=== PATIENT | female | born 1995 | race Hispanic/Latino ===

== ENCOUNTER 2019-08-09 18:59 | Emergency (ER) | payer MEDICAID ==
[2019-08-09 19:18] VITALS: BP 119/69
--- NOTE | 2019-08-09 19:28 | Emergency Department Report ---
ED Abdominal Pain HPI - General Chief Complaint: Abdominal Pain Stated Complaint: STOMACH PAIN Time Seen by Provider: 08/09/19 19:22 Source: patient Mode of arrival: Ambulatory Limitations: No Limitations - History of Present Illness Initial Comments: This is a 24-year-old female nontoxic, well nourished in appearance, no acute signs of distress presents to the ED with c/o of chronic intermittent epigastric pain x2 years. Stated has burning sensation after eating but currently denies any pain. Denies any . Patient denies any pelvic or abdominal pain. Patient denies any trauma. Denies any bladder or bowel instability. Patient denies any urinary symptoms. Denies any fever, chills, nausea, vomiting, headache, stiff neck, chest pain or shortness of breath. Patient denies any numbness or tingling. Denies any allergies. MD Complaint: abdominal pain -: year(s) Location: epigastric Migration to: no migration Severity scale (0 -10): 0 Consistency: intermittent, now resolved Improves With: nothing Worsens With: nothing Associated Symptoms: denies other symptoms. denies: nausea, vomiting, diarrhea, fever, chills, constipation, dysuria, hematemesis, hematochezia, melena, hematuria, anorexia, syncope ED Review of Systems ROS: Stated complaint: STOMACH PAIN Other details as noted in HPI Constitutional: denies: chills, fever Eyes: denies: eye pain, eye discharge, vision change ENT: denies: ear pain, throat pain Respiratory: denies: cough, shortness of breath, wheezing Cardiovascular: denies: chest pain, palpitations Endocrine: no symptoms reported Gastrointestinal: denies: abdominal pain, nausea, diarrhea Genitourinary: denies: urgency, dysuria, discharge Musculoskeletal: denies: back pain, joint swelling, arthralgia Skin: denies: rash, lesions Neurological: denies: headache, weakness, paresthesias Psychiatric: denies: anxiety, depression Hematological/Lymphatic: denies: easy bleeding, easy bruising ED Physical Exam - General Limitations: No Limitations General appearance: alert, in no apparent distress - Head Head exam: Present: atraumatic, normocephalic - Eye Eye exam: Present: normal appearance - Neck Neck exam: Present: normal inspection, full ROM. Absent: tenderness, meningismus, lymphadenopathy - Respiratory Respiratory exam: Present: normal lung sounds bilaterally. Absent: respiratory distress, wheezes, rales, rhonchi, stridor, chest wall tenderness, accessory muscle use, decreased breath sounds, prolonged expiratory - Cardiovascular Cardiovascular Exam: Present: regular rate, normal rhythm, normal heart sounds. Absent: irregular rhythm, systolic murmur, diastolic murmur, rubs, gallop - GI/Abdominal GI/Abdominal exam: Present: soft, normal bowel sounds. Absent: distended, tenderness, guarding, rebound, rigid, diminished bowel sounds, hyperactive bowel sounds, hypoactive bowel sounds, organomegaly, mass, bruit, pulsatile mass, hernia - Extremities Exam Extremities exam: Present: normal inspection, full ROM - Back Exam Back exam: Present: normal inspection, full ROM. Absent: tenderness, CVA tenderness (R), CVA tenderness (L), muscle spasm, paraspinal tenderness, vertebral tenderness, rash noted - Neurological Exam Neurological exam: Present: alert, oriented X3, normal gait - Psychiatric Psychiatric exam: Present: normal affect, normal mood - Skin Skin exam: Present: warm, dry, intact, normal color. Absent: rash ED Course Vital Signs 08/09/19 19:17 Temperature 98.8 F Pulse Rate 100 H Respiratory 16 Rate Blood Pressure 119/69 O2 Sat by Pulse 100 Oximetry - Reevaluation(s) Reevaluation #1: 08/09/19 19:27 Patient is speaking in full sentences with no signs of distress noted. ED Medical Decision Making - Medical Decision Making This is a 24-year-old female that presents with GERD symptoms. Patient is stable was examined by me. There is abdominal tenderness. Normal physical exam. Patient was referred to Follow-up with a primary care doctor in 3-5 days or if symptoms worsen and continue return to emergency room as soon as possible. At time of discharge, the patient does not seem toxic or ill in appearance. No acute signs of distress noted. Patient agrees to discharge treatment plan of care. No further questions noted by the patient. Critical care attestation.: If time is entered above; I have spent that time in minutes in the direct care of this critically ill patient, excluding procedure time. ED Disposition Clinical Impression: GERD (gastroesophageal reflux disease) Qualifiers: Esophagitis presence: esophagitis presence not specified Qualified Code(s): K21 .9 - Gastro-esophageal reflux disease without esophagitis Disposition: MED SCREENING EXAM-LEFT Is pt being admited?: No Does the pt Need Aspirin: No Condition: Stable Instructions: Gastroesophageal Reflux Disease (ED) Additional Instructions: Follow-up with a primary care doctor in 3-5 days or if symptoms worsen and continue return to emergency room as soon as possible. Referrals: PRIMARY CARE, [Referring] - 3-5 Days TESSIE FOX MD [Staff Physician] - 3-5 Days [facility] [Provider Group] - 3-5 Days
== END 2019-08-09 20:00 | disposition left against medical advice (07) ==
LOC: ED 18:59
DX: K21.9 Gastro-esophageal reflux disease without esophagitis (principal)
CPT/HCPCS: 99281

== ENCOUNTER 2020-06-03 14:21 | Emergency (ER) | payer MEDICAID ==
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
[2020-06-03 15:13] VITALS: BP 140/65
== END 2020-06-03 16:48 | disposition home or self-care (01) ==
LOC: ED 14:21
DX: S00.83XA Contusion of other part of head, initial encounter (principal); S00.93XA Contusion of unspecified part of head, initial encounter; F31.9 Bipolar disorder, unspecified; Z91.013 Allergy to seafood; X58.XXXA Exposure to other specified factors, initial encounter; Y93.89 Activity, other specified; Y92.099 Unspecified place in other non-institutional residence as the place of occurrence of the external cause; Y99.8 Other external cause status
CPT/HCPCS: 99281

== ENCOUNTER 2020-07-12 20:18 | Emergency (ER) | payer MEDICAID ==
[2020-07-12] MEDS ORDERED: ACETAMINOPHEN 500 MG TAB PO ONE (20:52)
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
[2020-07-12 22:11] LABS: Granular Casts,Urine 3 /LPF; Mucus,Urine 1+ /HPF
[2020-07-12 22:13] LABS: Bilirubin,Urine NEG (Negative); Blood,Urine NEG (Negative); Color,Urine Yellow (Yellow)
[2020-07-12 22:27] LABS: HCG Qualitative,Urine Negative (Negative)
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
[2020-07-13] MEDS ORDERED: ONDANSETRON 4 MG ODT TAB PO ONE (00:10)
[2020-07-13] MEDS ORDERED: LIDOCAINE-MPF (1%) 10 MG/1 ML VIAL 5 ML INFILTRATI ONE (00:10)
[2020-07-13] MEDS ORDERED: AZITHROMYCIN 250 MG TAB PO ONE (00:10)
[2020-07-13 01:29] VITALS: BP 119/66
== END 2020-07-13 01:16 | disposition home or self-care (01) ==
LOC: ED 20:18
DX: T74.21XA Adult sexual abuse, confirmed, initial encounter (principal); A60.00 Herpesviral infection of urogenital system, unspecified; K62.89 Other specified diseases of anus and rectum; F20.9 Schizophrenia, unspecified; F31.9 Bipolar disorder, unspecified; F17.200 Nicotine dependence, unspecified, uncomplicated; Z79.899 Other long term (current) drug therapy; Z91.013 Allergy to seafood; Y07.9 Unspecified perpetrator of maltreatment and neglect
CPT/HCPCS: 81001; 81025; 87086; 96372; 99283; J0696; Q0162

== ENCOUNTER 2020-07-30 22:34 | Emergency (ER) | payer MEDICAID ==
[2020-07-30 23:20] VITALS: BP 116/82
[2020-07-31] MEDS ORDERED: ACETAMINOPHEN 500 MG TAB PO ONE (02:33)
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
== END 2020-07-31 05:10 | disposition home or self-care (01) ==
LOC: ED 22:34
DX: S00.83XA Contusion of other part of head, initial encounter (principal); F25.0 Schizoaffective disorder, bipolar type; Z79.899 Other long term (current) drug therapy; Z91.013 Allergy to seafood; Y04.2XXA Assault by strike against or bumped into by another person, initial encounter; Y93.89 Activity, other specified; Y92.89 Other specified places as the place of occurrence of the external cause; Y99.8 Other external cause status
CPT/HCPCS: 70486

== ENCOUNTER 2020-08-29 13:12 | Emergency (ER) | payer MEDICAID ==
[2020-08-29 14:39] LABS: Bacteria,Urine 3+ /HPF (Negative); Bilirubin,Urine NEG (Negative); Blood,Urine SM (Negative); Color,Urine Yellow (Yellow); Mucus,Urine FEW /HPF
[2020-08-29 14:47] LABS: Amphetamine Screen,Urine PRESUMPTIVE NEGATIVE; Benzodiazepines Screen,Urine PRESUMPTIVE NEGATIVE; Cannabinoid Screen,Urine PRESUMPTIVE POSITIVE; Cocaine Screen,Urine PRESUMPTIVE NEGATIVE; Methadone Screen,Urine PRESUMPTIVE NEGATIVE; Opiate Screen,Urine PRESUMPTIVE NEGATIVE
--- NOTE | 2020-08-29 15:10 | Emergency Department Report ---
HPI - General Chief Complaint: Psych Time Seen by Provider: 08/29/20 14:00 - HPI HPI: This is a 25-year-old female presents to the emergency department with a complaint of depression and suicidal ideations. Patient says that her mother a few years back and she has been thinking about her and it has caused increased depression and suicidal thoughts. Overall she says that the suicidal ideations have been going on for months but worsened recently. Patient has a history of bipolar disorder, schizophrenia and depression. She says she is on medication for it and has been taking it compliantly. She denies having a psychiatrist or behavioral center that she follows with regularly. Patient also admits to some visual hallucinations in which she has been seeing " people." She denies any homicidal ideations. ED Past Medical Hx - Past Medical History Previous Medical History?: Yes Hx Psychiatric Treatment: Yes Additional medical history: bipolar, schizophrenia, depression - Surgical History Past Surgical History?: No - Social History Smoking Status: Current Every Day Smoker Substance Use Type: Cocaine, Marijuana - Medications Home Medications: Home Medications Medication Instructions Recorded Confirmed Last Taken Type Valacyclovir HCl [Valtrex] 1,000 mg PO BID 7 Days #14 tablet 07/13/20 Unknown Rx Cyclobenzaprine [Flexeril] 10 mg PO TID PRN #15 tablet 07/31/20 Unknown Rx Ibuprofen [Motrin] 800 mg PO Q8HR PRN #20 tablet 07/31/20 Unknown Rx ED Review of Systems ROS: Stated complaint: SI Other details as noted in HPI Comment: All other systems reviewed and negative Constitutional: denies: chills, fever Respiratory: denies: cough, shortness of breath Cardiovascular: denies: chest pain, palpitations Gastrointestinal: denies: abdominal pain, vomiting Musculoskeletal: denies: back pain, arthralgia Neurological: denies: headache, weakness Psychiatric: auditory hallucinations, suicidal thoughts. denies: homicidal thoughts Physical Exam - Physical Exam Vital Signs: Vital Signs 08/29/20 13:47 Pulse Rate 110 H Respiratory 18 Rate Blood Pressure 143/90 [Right] O2 Sat by Pulse 98 Oximetry Physical Exam: GENERAL: The patient is well-developed well-nourished. HENT: Normocephalic. Atraumatic. Patient has moist mucous membranes. EYES: Extraocular motions are intact. NECK: Supple. Trachea is midline. CHEST/LUNGS: Clear to auscultation. There is no respiratory distress noted. HEART/CARDIOVASCULAR: Regular. There is no tachycardia. There is no murmur. ABDOMEN: Abdomen is soft, nontender. Patient has normal bowel sounds. There is no abdominal distention. SKIN: Skin is warm and dry. NEURO: The patient is awake, alert, and oriented. The patient is cooperative. Normal speech. MUSCULOSKELETAL: There is no tenderness or deformity. There is no limitation range of motion. ED Course Vital Signs 08/29/20 13:47 Pulse Rate 110 H Respiratory 18 Rate Blood Pressure 143/90 [Right] O2 Sat by Pulse 98 Oximetry ED Medical Decision Making - Lab Data Result diagrams: 08/29/20 15:08/29/20 15: Lab Results 08/29/20 08/29/20 08/29/20 Range/Units 15:22 15:22 15:22 WBC 10.8 (4.5-11.0) K/mm3 RBC 4.53 (3.65-5.03) M/mm3 Hgb 13.5 (10.1-14.3) gm/dl Hct 40.2 (30.3-42.9) % MCV 89 (79-97) fl MCH 30 (28-32) pg MCHC 34 (30-34) % RDW 13.6 (13.2-15.2) % Plt Count 209 (140-440) K/mm3 Lymph % (Auto) 19.1 (13.4-35.0) % Fisher % (Auto) 7.1 (0.0-7.3) % Eos % (Auto) 1.9 (0.0-4.3) % Baso % (Auto) 0.7 (0.0-1.8) % Lymph # (Auto) 2.1 (1.2-5.4) K/mm3 Fisher # (Auto) 0.8 (0.0-0.8) K/mm3 Eos # (Auto) 0.2 (0.0-0.4) K/mm3 Baso # (Auto) 0.1 (0.0-0.1) K/mm3 Seg Neutrophils % 71.2 H (40.0-70.0) % Seg Neutrophils # 7.7 (1.8-7.7) K/mm3 Sodium 139 (137-145) mmol/L Potassium 4.5 (3.6-5.0) mmol/L Chloride 104.2 (98-107) mmol/L Carbon Dioxide 23 (22-30) mmol/L Anion Gap 16 mmol/L BUN 20 H (7-17) mg/dL Creatinine 0.6 (0.6-1.2) mg/dL Estimated GFR > 60 ml/min BUN/Creatinine Ratio 33 % Glucose 94 (65-100) mg/dL Calcium 9.3 (8.4-10.2) mg/dL HCG, Qual (Negative) Urine Color (Yellow) Urine Turbidity (Clear) Urine pH (5.0-7.0) Ur Specific [place] (1.003-1.030) Urine Protein (Negative) mg/dL Urine Glucose (UA) (Negative) mg/dL Urine Ketones (Negative) mg/dL Urine Blood (Negative) Urine Nitrite (Negative) Urine Bilirubin (Negative) Urine Urobilinogen (<2.0) mg/dL Ur Leukocyte Esterase (Negative) Urine WBC (Auto) (0.0-6.0) /HPF Urine RBC (Auto) (0.0-6.0) /HPF U Epithel Cells (Auto) (0-13.0) /HPF Urine Bacteria (Auto) (Negative) /HPF Urine Mucus /HPF Urine Opiates Screen Urine Methadone Screen Ur Barbiturates Screen Ur Phencyclidine Scrn Ur Amphetamines Screen U Benzodiazepines Scrn Urine Cocaine Screen U Marijuana (THC) Screen Drugs of Abuse Note Plasma/Serum Alcohol < 0.01 (0-0.07) % 08/29/20 08/29/20 08/29/20 Range/Units 15:22 Unknown Unknown WBC (4.5-11.0) K/mm3 RBC (3.65-5.03) M/mm3 Hgb (10.1-14.3) gm/dl Hct (30.3-42.9) % MCV (79-97) fl MCH (28-32) pg MCHC (30-34) % RDW (13.2-15.2) % Plt Count (140-440) K/mm3 Lymph % (Auto) (13.4-35.0) % Fisher % (Auto) (0.0-7.3) % Eos % (Auto) (0.0-4.3) % Baso % (Auto) (0.0-1.8) % Lymph # (Auto) (1.2-5.4) K/mm3 Fisher # (Auto) (0.0-0.8) K/mm3 Eos # (Auto) (0.0-0.4) K/mm3 Baso # (Auto) (0.0-0.1) K/mm3 Seg Neutrophils % (40.0-70.0) % Seg Neutrophils # (1.8-7.7) K/mm3 Sodium (137-145) mmol/L Potassium (3.6-5.0) mmol/L Chloride (98-107) mmol/L Carbon Dioxide (22-30) mmol/L Anion Gap mmol/L BUN (7-17) mg/dL Creatinine (0.6-1.2) mg/dL Estimated GFR ml/min BUN/Creatinine Ratio % Glucose (65-100) mg/dL Calcium (8.4-10.2) mg/dL HCG, Qual Negative (Negative) Urine Color Yellow (Yellow) Urine Turbidity Cloudy (Clear) Urine pH 6.0 (5.0-7.0) Ur Specific [place] 1.028 (1.003-1.030) Urine Protein 30 mg/dl (Negative) mg/dL Urine Glucose (UA) 50 (Negative) mg/dL Urine Ketones Neg (Negative) mg/dL Urine Blood Sm (Negative) Urine Nitrite Neg (Negative) Urine Bilirubin Neg (Negative) Urine Urobilinogen 2.0 (<2.0) mg/dL Ur Leukocyte Esterase Lg (Negative) Urine WBC (Auto) 39.0 H (0.0-6.0) /HPF Urine RBC (Auto) 68.0 (0.0-6.0) /HPF U Epithel Cells (Auto) 44.0 H (0-13.0) /HPF Urine Bacteria (Auto) 3+ (Negative) /HPF Urine Mucus Few /HPF Urine Opiates Screen Presumptive negative Urine Methadone Screen Presumptive negative Ur Barbiturates Screen Presumptive negative Ur Phencyclidine Scrn Presumptive negative Ur Amphetamines Screen Presumptive negative U Benzodiazepines Scrn Presumptive negative Urine Cocaine Screen Presumptive negative U Marijuana (THC) Screen Presumptive positive Drugs of Abuse Note Disclamer Plasma/Serum Alcohol (0-0.07) % - Medical Decision Making This patient presents to the emergency department with depression and suicidal ideations. For the mental health chef broiler or fry she also expressed command rock lucinations. She did tell me that she was having visual hallucinations and when she saw " people." For all these reasons the patient was made a 1013 and an ED hold. Labs have been mostly unremarkable including CBC, metabolic panel, blood alcohol level. Urinalysis does show a urinary tract infection and UDS is positive for marijuana. Vital signs stable reassuring throughout her ED course thus far. Patient was seen by the mental health chef broiler or fry who agrees with the plan for inpatient stabilization. The patient is medically cleared for psychiatric treatment. Critical Care Time: No Critical care attestation.: If time is entered above; I have spent that time in minutes in the direct care of this critically ill patient, excluding procedure time. ED Disposition Clinical Impression: Suicidal ideations, History of command hallucinations UTI (urinary tract infection) Qualifiers: Urinary tract infection type: acute cystitis Hematuria presence: without hematuria Qualified Code(s): N30.00 - Acute cystitis without hematuria Disposition: DC/TX-65 PSY HOSP/PSY UNIT Is pt being admited?: No Condition: Stable Time of Disposition: 17:37
[2020-08-29 15:33] LABS: Basophils # (Auto) 0.1 K/mm3 (0.0-0.1); Basophils % (Auto) 0.7 % (0.0-1.8); Eosinophils # (Auto) 0.2 K/mm3 (0.0-0.4); Eosinophils % (Auto) 1.9 % (0.0-4.3); Hematocrit 40.2 % (30.3-42.9); Hemoglobin 13.5 gm/dl (10.1-14.3); Lymphocytes # (Auto) 2.1 K/mm3 (1.2-5.4); Lymphocytes % (Auto) 19.1 % (13.4-35.0); Mean Corpuscular HGB Conc 34 % (30-34); Mean Corpuscular Volume 89 fl (79-97); Monocytes # (Auto) 0.8 K/mm3 (0.0-0.8); Monocytes % (Auto) 7.1 % (0.0-7.3); Red Blood Count 4.53 M/mm3 (3.65-5.03); Red Cell Distribution Width 13.6 % (13.2-15.2)
[2020-08-29 15:47] LABS: Platelet Count 209 K/mm3 (140-440)
[2020-08-29 15:52] LABS: Blood Urea Nitrogen 20 mg/dL (7-17); Calcium 9.3 mg/dL (8.4-10.2); Hemolysis Index 34
[2020-08-29 16:00] LABS: BUN/Creatinine Ratio 33
[2020-08-29] MEDS: NITROFURANTOIN MONOHYD/M-CRYST 100 MG CAP PO SCH (17:00)
[2020-08-30] MEDS: NITROFURANTOIN MONOHYD/M-CRYST 100 MG CAP PO SCH (05:46)
[2020-08-30 08:32] VITALS: BP 113/73
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
== END 2020-08-30 17:00 ==
LOC: ED 13:12
DX: R45.851 Suicidal ideations (principal); N39.0 Urinary tract infection, site not specified; R44.2 Other hallucinations; F17.200 Nicotine dependence, unspecified, uncomplicated; F12.10 Cannabis abuse, uncomplicated; F14.10 Cocaine abuse, uncomplicated; Z79.1 Long term (current) use of non-steroidal anti-inflammatories (NSAID); Z79.899 Other long term (current) drug therapy; Z91.013 Allergy to seafood
CPT/HCPCS: 36415; 80048; 80307; 80320; 81001; 84703; 85025; 87086; G0480

== ENCOUNTER 2020-09-16 14:07 | Emergency (ER) | payer MEDICAID ==
[2020-09-16 15:14] LABS: Basophils # (Auto) 0.1 K/mm3 (0.0-0.1); Basophils % (Auto) 0.7 % (0.0-1.8); Eosinophils # (Auto) 0.2 K/mm3 (0.0-0.4); Hematocrit 40.8 % (30.3-42.9); Hemoglobin 13.8 gm/dl (10.1-14.3); Lymphocytes # (Auto) 1.7 K/mm3 (1.2-5.4); Lymphocytes % (Auto) 19.3 % (13.4-35.0); Mean Corpuscular HGB Conc 34 % (30-34); Mean Corpuscular Volume 88 fl (79-97); Monocytes # (Auto) 0.5 K/mm3 (0.0-0.8); Monocytes % (Auto) 5.4 % (0.0-7.3); Platelet Count 207 K/mm3 (140-440); Red Blood Count 4.63 M/mm3 (3.65-5.03); Red Cell Distribution Width 13.7 % (13.2-15.2)
[2020-09-16 15:43] LABS: Bacteria,Urine 1+ /HPF (Negative); Bilirubin,Urine NEG (Negative); Blood,Urine SM (Negative); Color,Urine Yellow (Yellow); Mucus,Urine FEW /HPF; Protein,Urine <15 mg/dL mg/dL (Negative)
[2020-09-16 15:50] LABS: Amphetamine Screen,Urine PRESUMPTIVE NEGATIVE; Benzodiazepines Screen,Urine PRESUMPTIVE NEGATIVE; Cannabinoid Screen,Urine PRESUMPTIVE NEGATIVE; Cocaine Screen,Urine PRESUMPTIVE NEGATIVE; Methadone Screen,Urine PRESUMPTIVE NEGATIVE; Opiate Screen,Urine PRESUMPTIVE NEGATIVE
[2020-09-16 16:27] LABS: Alanine Aminotransferase 50 units/L (7-56); Albumin 4.3 g/dL (3.9-5); Blood Urea Nitrogen 20 mg/dL (7-17); Calcium 9.5 mg/dL (8.4-10.2); Hemolysis Index 16
[2020-09-16 16:32] LABS: BUN/Creatinine Ratio 29
--- NOTE | 2020-09-16 17:12 | Emergency Department Report ---
ED Psych HPI - General Chief Complaint: Abdominal Pain Stated Complaint: 2 WEEKS , FEEL LIKE PASSING OUT Time Seen by Provider: 09/16/20 16:29 Source: patient Mode of arrival: Ambulatory - History of Present Illness Initial Comments: Patient is 25 years old female with history of schizophrenia. Patient presented to the ER stating that she is hearing voices asking her to kill herself by hanging herself. Patient denied any homicidal ideation. No visual hallucination. Triage note reported abdominal pain however patient denied abdominal pain. She stated that she think that she is . Patient is eating her meal comfortably with no pain or difficulty. MD Complaint: suicidal ideation -: days(s) Associated Psychiatric Symptoms: suicidal ideation, auditory hallucinations History of same: No Associated Symptoms: denies other symptoms If Self Harm: admits thoughts of, has plan - Related Data Previous Rx's Medication Instructions Recorded Last Taken Type Valacyclovir HCl [Valtrex] 1,000 mg PO BID 7 Days #14 tablet 07/13/20 Unknown Rx Cyclobenzaprine [Flexeril] 10 mg PO TID PRN #15 tablet 07/31/20 Unknown Rx Ibuprofen [Motrin] 800 mg PO Q8HR PRN #20 tablet 07/31/20 Unknown Rx Allergies Allergy/AdvReac Type Severity Reaction Status Date / Time shellfish derived Allergy Unknown Verified 09/16/20 14:32 ED Review of Systems ROS: Stated complaint: 2 WEEKS , FEEL LIKE PASSING OUT Other details as noted in HPI Comment: All other systems reviewed and negative Constitutional: denies: chills, fever Respiratory: denies: cough, shortness of breath, SOB with exertion Cardiovascular: denies: chest pain, palpitations, dyspnea on exertion Gastrointestinal: denies: abdominal pain, nausea, vomiting Musculoskeletal: denies: back pain Neurological: denies: headache, weakness, numbness, paresthesias, confusion, abnormal gait Psychiatric: auditory hallucinations, suicidal thoughts. denies: anxiety, depression, visual hallucinations, homicidal thoughts ED Past Medical Hx - Past Medical History Hx Psychiatric Treatment: Yes Additional medical history: bipolar, schizophrenia, depression - Social History Smoking Status: Current Every Day Smoker Substance Use Type: None - Medications Home Medications: Home Medications Medication Instructions Recorded Confirmed Last Taken Type Valacyclovir HCl [Valtrex] 1,000 mg PO BID 7 Days #14 tablet 07/13/20 Unknown Rx Cyclobenzaprine [Flexeril] 10 mg PO TID PRN #15 tablet 07/31/20 Unknown Rx Ibuprofen [Motrin] 800 mg PO Q8HR PRN #20 tablet 07/31/20 Unknown Rx ED Physical Exam - General Limitations: No Limitations General appearance: alert, in no apparent distress - Head Head exam: Present: atraumatic, normocephalic, normal inspection - Eye Eye exam: Present: normal appearance, PERRL - ENT ENT exam: Present: normal exam, normal orophraynx, mucous membranes moist - Neck Neck exam: Present: normal inspection, full ROM. Absent: tenderness, meningismus - Respiratory Respiratory exam: Present: normal lung sounds bilaterally - Cardiovascular Cardiovascular Exam: Present: regular rate, normal rhythm, normal heart sounds - GI/Abdominal GI/Abdominal exam: Present: soft, normal bowel sounds. Absent: distended, tenderness, guarding, rebound, rigid, mass, bruit, pulsatile mass, hernia - Extremities Exam Extremities exam: Present: normal inspection, full ROM, normal capillary refill. Absent: tenderness - Back Exam Back exam: Present: normal inspection, full ROM. Absent: CVA tenderness (R), CVA tenderness (L) - Neurological Exam Neurological exam: Present: alert, oriented X3, CN II-XII intact, normal gait, reflexes normal. Absent: motor sensory deficit - Psychiatric Psychiatric exam: Present: normal mood, suicidal ideation. Absent: homicidal ideation - Skin Skin exam: Present: warm, intact, normal color ED Course Vital Signs 09/16/20 09/16/20 09/16/20 14:28 20:14 20:39 Temperature 97.9 F 98.7 F Pulse Rate 120 H 89 Respiratory 20 18 18 Rate Blood Pressure 145/90 101/33 Blood Pressure [Right] O2 Sat by Pulse 96 96 Oximetry 09/17/20 09/17/20 09/17/20 02:45 08:00 20:19 Temperature 97.8 F 98.4 F 98.8 F Pulse Rate 76 81 83 Respiratory 18 14 18 Rate Blood Pressure 100/41 Blood Pressure 126/66 131/70 [Right] O2 Sat by Pulse 95 96 97 Oximetry 09/17/20 09/18/20 09/18/20 21:32 01:47 07:47 Temperature 98.6 F 97.6 F Pulse Rate 73 85 Respiratory 18 20 20 Rate Blood Pressure Blood Pressure 128/69 131/88 [Right] O2 Sat by Pulse 98 98 98 Oximetry 09/18/20 09/18/20 20:25 20:26 Temperature 98.1 F Pulse Rate 99 H Respiratory 18 18 Rate Blood Pressure Blood Pressure 104/67 [Right] O2 Sat by Pulse 98 Oximetry ED Medical Decision Making - Lab Data Result diagrams: 09/16/20 14:59 09/16/20 14:59 Critical care attestation.: If time is entered above; I have spent that time in minutes in the direct care of this critically ill patient, excluding procedure time. ED Disposition Clinical Impression: Suicidal ideation Disposition: DC/TX-65 PSY HOSP/PSY UNIT Is pt being admited?: No Condition: Stable Instructions: Abdominal Pain (ED) Referrals: PRIMARY CARE, [Primary Care Provider] - 3-5 Days
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
--- NOTE | 2020-09-17 17:10 | Event Note ---
Date: 09/17/20 S- "I'm perfectly fine." O- vital signs stable; patient calm and cooperative A- major depressive disorder P- 1013; awaiting acceptance at an inpatient psych facility
--- NOTE | 2020-09-18 12:25 | Progress Note ---
Subjective - Reason for Consult Consult date: 09/18/20 Reason for consult: MHE Requesting physician: CRYS BARRERA - Chief Complaint Chief complaint: Psych Prgress Patient seen today, states she has a particular place in mind she would to be transferred to, informed patient there is no preference. Patient endorses no changes in mood. REVIEW OF SYSTEMS Constitutional: Negative for weight loss ENT: Negative for stridor Respiratory: Negative for cough or hemoptysis All other systems reviewed and are negative MENTAL STATUS EXAMINATION General Appearance and Behavior: Age appropriate, good hygiene, wearing appropriate clothes, good eye contact, cooperative polite with questioning. Cooperation: Participating/engaged Psychomotor Behavior: unremarkable and within normal limits Mood: Good Affect and affective range: congruent with mood Thought Process: Fluent/Logical, Thought Content: Within reality, Speech: Normal volume, Regular rate and rhythm, Intellectual Functioning: Average Suicidal Ideation: Intermittent SI Homicidal Ideation: Denies HI Impulse Control: Unimpaired Insight and Judgment: Normal insight and judgment, Memory: Normal, Attention: Normal, Orientation: Alert, oriented, Assessment and Plan - Psychiatric problem (1) MDD (major depressive disorder) Current Visit: Yes Status: Acute Treatment Plan Patient is unstable, was just recently discharged from psych facility but already presenting to ED with thoughts of hanging self. I do recommend inpatient for further mental stabilization MEDICATIONS: Risks, benefits and alternatives of medications discussed with the patient, questions answered and consent obtained from patient. PSYCHOTHERAPY: Supportive psychotherapy provided MEDICAL: Per primary team DELIRIUM PRECAUTIONS: Please re-orient patient frequently, keep lights on during the day, and minimize benzodiazepines and opiates as these medications could worsen patient's confusion. CASHIER TICKET SELLING: DISPOSITION: Do Recommend acute inpatient psychiatric hospitalization at this time. Case discussed with Dr. Bang who agrees with current disposition LEGAL STATUS: 1013 FOLLOW-UP: Will follow Thank you for the consult. Please contact with any questions and/or concerns. Mental Status Exam - Vital signs Last Vital Signs Temp 97.6 F 09/18/20 07:47 Pulse 85 09/18/20 07:47 Resp 20 09/18/20 07:47 BP 131/88 09/18/20 07:47 Pulse Ox 98 09/18/20 07:47
[2020-09-18 20:26] VITALS: BP 104/67
== END 2020-09-18 20:44 ==
LOC: ED 14:07 → EEVIPCON 14:07 → ED 09-18 20:44
DX: F25.0 Schizoaffective disorder, bipolar type (principal); F17.200 Nicotine dependence, unspecified, uncomplicated; F12.10 Cannabis abuse, uncomplicated; Z79.899 Other long term (current) drug therapy; Z91.013 Allergy to seafood; Z20.822 Contact with and (suspected) exposure to COVID-19
CPT/HCPCS: 36415; 80053; 80307; 81001; 84703; 85025; 87086; 99285; U0003; 80320; G0480